=== PATIENT | male | born 1960 | race Caucasian/White ===

== ENCOUNTER 2022-03-16 06:19 | Day surgery (SDC) | payer BC, SELFPAY ==
[2022-03-16 06:39] VITALS: BMI 29.5
[2022-03-16 06:47] VITALS: BP 139/91; PULSE 61; RESP 16; TEMP 36.5; O2SAT 96
[2022-03-16] MEDS: LACTATED RINGERS 1000 ML 1,000 ML 100 ML IV (07:00)
[2022-03-16] MEDS: ETHYL CHLORIDE 1 APPLICATION 1 APPLIC TOPICAL (07:01)
[2022-03-16] MEDS: SODIUM CHLORIDE 0.9 % (FLUSH) 10 ML SYRINGE IVF (07:01)
[2022-03-16] MEDS: CEFAZOLIN 2 GM INJ IVP (07:46)
[2022-03-16] MEDS: BUPIVACAINE 0.25% 30 ML INJECTION (07:56)
--- NOTE | 2022-03-16 08:29 | W.ANESCHARGE ---
Anesthesia Charges Start Date/Time Anesthesia Start Date: 03/16/22 Anesthesia Start Time: 07:40 Stop Date/Time Anesthesia Stop Date: 03/16/22 Anesthesia Stop Time: 08:30 Summary Emergency: No
--- NOTE | 2022-03-16 08:30 | PM.GSPRC ---
Operative Note Date of procedure: 03/16/22 Type of Procedure: Open umbilical hernia with primary repair Procedure Description: After discussing the risks and benefits of the procedure, the patient signed informed consent.? The operative site was marked and the patient was brought to the operating room and placed on the operating table in supine position.? Care was taken to pad the patient's pressure points.?? The patient was then given sedation by anesthesia.?? The operative site was then prepped and draped in the usual sterile fashion.? A time-out was then performed. Local anesthetic was injected into the fascia, skin and subcutaneous tissues. A curvilinear incision was made at the umbilicus. Dissection was carried down into the subcutaneous tissue using cautery. The hernia sac was encountered and dissected off the umbilical skin. Dissection was taken down to the fascia. The hernia was found to be containing preperitoneal fat. This was reduced. The sac was excised. Fascia around hernia defect was cleared off circumferentially with cautery. The hernia defect was only 1 cm. For this reason decision was made to close the defect primarily. 0 Nurolon was then used to close the defect in interrupted [id number] fashion. The umbilicus was reapproximated to the fascia. The skin was then closed with running absorbable suture. A sterile dressing was then applied. ? The patient was then woken and transported to the recovery area in stable condition. ? The patient tolerated the procedure well. Findings: 1 cm fat containing umbilical hernia Anesthesia: MAC Surgeon: Elyse Caballero MD Estimated blood loss (mL): 1 Condition: stable Disposition: PACU
[2022-03-16 08:35] VITALS: BP 109/81; PULSE 64; RESP 16; TEMP 36.2; O2SAT 97
--- NOTE | 2022-03-16 08:37 | W.ANESCHARGE ---
Anesthesia Charges Start Date/Time Anesthesia Start Date: 03/16/22 Anesthesia Start Time: 07:40 Stop Date/Time Anesthesia Stop Date: 03/16/22 Anesthesia Stop Time: 08:30 Summary Emergency: No
[2022-03-16 08:49] VITALS: BP 129/82; PULSE 57; RESP 16; O2SAT 97
[2022-03-16 09:01] VITALS: BP 134/87; PULSE 62; RESP 16; O2SAT 97
== END 2022-03-16 09:23 | disposition home or self-care (01) ==
PROVIDERS: PCP Family Medicine; Visit Provider Surgery
PROC: (CPT 49585; principal; 2022-03-16 07:30)
DX: K42.9 Umbilical hernia without obstruction or gangrene (principal)
CPT/HCPCS: 49585; 00800; 00830; J0690; J1100; J2250; J2405; J2704; J3010; J3490; J7120